=== PATIENT | male | born 1950 | race Asian ===

== ENCOUNTER 2019-01-06 12:01 | Observation (INO) | payer MEDICAID, MEDICARE ==
[~2019-01-06 12:01] MED LIST: Iopamidol 370 76% 100 ML VIAL ONE
[2019-01-06 12:57] LABS: Estimated GFR-MDRD - POC Greater than 90
[2019-01-06] MEDS ORDERED: Bacitracin Zinc 1 Packet ONE (13:00)
--- NOTE | 2019-01-06 13:00 | RAD ---
RADIOGRAPH LEFT HAND THREE VIEWS: HISTORY: A 68-year-old male with acute trauma to the left hand after a fall. FINDINGS: Diffuse osteopenia. No dislocation. No fracture identified. IMPRESSION: No fracture identified. POS: [facility]
--- NOTE | 2019-01-06 13:00 | RAD ---
RADIOGRAPH CHEST 1 VIEW: HISTORY: 68-year-old male status post acute chest trauma from fall. FINDINGS: There are no air space densities, pulmonary edema, pneumothorax, or cardiomegaly. The lateral costop hrenic angles are sharp. IMPRESSION: No acute cardiopulmonary findings. [place] POS: [facility]
--- NOTE | 2019-01-06 13:26 | RAD ---
RADIOGRAPH LEFT FOOT THREE VIEWS: History: 68-year-old male with traumatic left foot pain after fall. FINDINGS: Mildly comminuted oblique fracture of third proximal phalangeal diaphysis, with mild lateral angulati on of the diaphysis relative to the metaphysis. No dislocation. IMPRESSION: Acute, traumatic, minimally displaced spiral fracture of shaft of proximal phalanx of left third toe. POS: [facility]
[2019-01-06] MEDS ORDERED: Morphine 4 MG/ML VIAL ONE (13:33)
--- NOTE | 2019-01-06 13:59 | CT ---
CT ABDOMEN AND PELVIS WITH CONTRAST LIMITED CT LUMBOSACRAL SPINE: HISTORY: Injury. Flank pain. Fall. COMPARISON: CT abdomen from 2014. FINDINGS: Low-grade atelectasis lower lobes. 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 There is a fracture of the right posterolateral 9th rib with 1 shaft width displacement and 3 mm overriding. There is a lateral right 8th rib fracture with shaft width displacement. A 7th rib fracture lat erally is present with shaft width displacement. There are possibly some other rib fractures vaishali t are not interrogated on this exam as this is only an abdomen and pelvis exam. No left-sided rib fractures are present. No transverse process fractures are present. 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 No lumbar spine compression fracture is appreciated. No widening of the facet joints. No spinous process fracture. Bone island right ileum. SI joints are not widened. The pubic symphysis is not widened. Bone island in the right femoral head and right femoral metaphysis and right posterior ileum at the S I joint and left iliac wing. A 3 mm nodule right lower lobe axial image 14. Liver is without laceration or contusion. No perihep atic hematoma. The spleen without acute injury nor do the adrenal glands have acute injury. No acut e renal injury. Hypodensity inferior pole right kidney measures fluid attenuation suggestive of a cy st. The aortic contour is nonaneurysmal. No acute aortic injury. Soft tissue contusion of the right lateral hemithorax. The appendix is visualized and is normal. No mesenteric hematoma. Mild thickening of the sigmoid colon for a length of 10 cm may be sequelae of colitis, less likely underlying infiltrative mass. No retroperitoneal periaortic adenopathy. IMPRESSION: 1. Multiple right-sided rib fractures as described, some of which are segmental. Small extrapleural hematoma. No significant right-sided basilar pneumothorax. 2. No solid organ injury within the abdomen or pelvis. No hepatic laceration. 3. Mild diastasis recti. 4. Approximately 10 cm submucosal edema and thickening of the sigmoid colon may be sequelae of a col itis, although a followup colonoscopy is recommended. POS: [facility]
[2019-01-06 14:35] LABS: PTT 23.8 SEC (22.9-36.1); Prothrombin Time 13.4 SEC (12.0-14.7)
[2019-01-06 14:37] LABS: #Basophils 0.1 thou/uL (0.0-0.2); #Eosinphils 0.1 thou/uL (0.0-0.7); #Lymphocytes 1.4 thou/uL (1.20-3.40); #Monocytes 0.7 thou/uL (0.11-0.59); #Neutrophils 11.8 thou/uL (1.40-6.50); %Basophils 0.6 % (0.0-1.0); %Eosinophils 0.6 % (0.0-10.0); %Neutrophils 83.8 % (42.0-75.0); Anisocytosis SLIGHT = 6-15 cells (100X) (0-5/hpf); Elliptocytes SLIGHT = 2-5 cells (100X) (0-1/hpf); Hemoglobin 12.7 g/dL (14.0-18.0); Hypochromia SLIGHT = 6-15 cells (100X) (0-5/hpf); MDiff Complete? YES; Mean Corpuscular HGB CONC 30.3 g/dL (32.0-36.0); Mean Corpuscular Hemoglobin 19.8 pg (27.0-31.0); Mean Corpuscular Volume 65.4 fL (78.0-98.0); Mean Platelet Volume 14.9 fL (7.4-10.4); Microcytosis SLIGHT = 6-15 cells (100X) (0-5/hpf); Platelet Count 179 thou/uL (130-400); Platelet Morphology Comment Appears Adequate; RBC Distribution Width 15.1 % (11.5-14.5); Red Blood Cell (RBC) Count 6.42 mill/uL (4.70-6.10); Target Cells SLIGHT = 2-5 cells (100X) (0-1/hpf); White Blood Cell (WBC) Count 14.1 thou/uL (4.8-10.8)
[2019-01-06 14:42] LABS: Anion Gap 15 mmol/L (10-20); BUN (Urea Nitrogen) 13 mg/dL (8.4-25.7); Calc. Creatinine Clearance 0 mL/min (70-130); Calcium 9.2 mg/dL (7.8-10.44); Carbon Dioxide 22 mmol/L (23-31); Chloride 105 mmol/L (98-107); Estimated GFR-MDRD Greater than 90; Glucose 241 mg/dL (80-115); Potassium 4.5 mmol/L (3.5-5.1); Sodium 137 mmol/L (136-145)
--- NOTE | 2019-01-06 14:42 | RAD ---
RIGHT SHOULDER TWO VIEWS: HISTORY: Fall. COMPARISON: None. FINDINGS: No fracture. No malalignment. Mild subacromial narrowing. The visualized ribs are unremarkable. IMPRESSION: 1. No acute abnormality submitted for interrogation. 2. No acute displaced fracture or malalignment is appreciated. 4. Acromioclavicular alignment is normal. POS: [facility]
[2019-01-06] MEDS ORDERED: Gabapentin 100 MG CAP ONE (15:10)
[2019-01-06] MEDS ORDERED: traMADol HCl 50 MG TAB ONE (15:11)
[2019-01-06] MEDS ORDERED: Acetaminophen 500 MG TAB ONE (15:11)
[2019-01-06] MEDS ORDERED: Ibuprofen 600 MG TAB ONE (15:12)
[2019-01-06 17:39] VITALS: BMI 35.9
[2019-01-06] MEDS ORDERED: Ondansetron ODT 4 MG TAB PO PRN (18:14)
[2019-01-06] MEDS ORDERED: Dextrose 50% Abboject 50 ML SYRINGE SLOW IVP PRN (18:14)
[2019-01-06] MEDS ORDERED: Dextrose 5% in Water 1,000 ML IV PRN (18:14)
[2019-01-06] MEDS ORDERED: Ondansetron PF 4 MG/2 ML Vial IVP PRN (18:14)
[2019-01-06] MEDS ORDERED: Rib Fracture Protocol PO SCH (18:14)
[2019-01-06] MEDS ORDERED: Cyclobenzaprine 10 MG TAB PO PRN (18:15)
[2019-01-06] MEDS ORDERED: traMADol HCl 50 MG TAB PO SCH (18:30)
[2019-01-06] MEDS ORDERED: Ibuprofen 800 MG TAB PO SCH (18:30)
[2019-01-06] MEDS ORDERED: Acetaminophen 500 MG TAB PO SCH (18:30)
[2019-01-06] MEDS ORDERED: HYDROcodone/Acetaminophen 10/325 mg Tablet PO PRN (19:07)
[2019-01-06] MEDS ORDERED: INSULIN PUMP CARTRIDGE SC SCH (19:15)
--- NOTE | 2019-01-06 19:58 | HP ---
ATTENDING SURGEON: Jonah Fischer DO CONSULTATIONS: None. HISTORY OF PRESENT ILLNESS: The patient is a 68-year-old man, who was reportedly stepping out of the shower earlier this morning when he fell and struck his right flank against the toilet. The patient had immediate pain to his right shoulder, right flank, and left foot. The patient was brought by POA to the Emergency Department at [facility], where he underwent evaluation and examination and was noted to have multiple rib fractures, contusion of his shoulder, and a phalanx fracture of his left foot, at which time, we were asked to admit the patient for pain control, observation, and likely a Rehab consultation. ALLERGIES: NONE. CURRENT MEDICATIONS: 1. Amlodipine/atorvastatin. 2. Aspirin. 3. Duloxetine. 4. Jardiance. 5. Gabapentin. 6. Glucosamine. 7. [place]. 8. Insulin pump. 9. Irbesartan. 10. Metformin. 11. Sertraline. 12. Tamsulosin. 13. Ambien. PAST SURGICAL HISTORY: Bilateral knee replacements. SOCIAL HISTORY: The patient lives at home with family. He denies drug, tobacco, or alcohol use. REVIEW OF SYSTEMS: A 10-point review of systems is negative as otherwise stated. PHYSICAL EXAMINATION: VITAL SIGNS: Temperature 98.0, heart rate 83, blood pressure 148/71, respirations 20, and oxygen saturation is 92% on room air. GENERAL: The patient is resting comfortably in bed. He is awake, alert, and oriented x3. Leidy Coma Scale is 15. HEENT: Head, normocephalic and atraumatic. Eyes, extraocular motion intact. PERRLA bilaterally. Ears are atraumatic without discharge. Oropharynx is clear. NECK: Nontender. Trachea is midline. No JVD. CHEST: Clear to auscultation with moderate inspiratory and expiratory effort. The patient reports difficulty due to pain primarily on his right lower chest consistent with his fractures. ABDOMEN: Soft, flat, and nontender with active bowel sounds. PELVIS: Stable. EXTREMITIES: The patient is tender to palpation to right shoulder area. Nontender at the clavicle. Left foot is immobilized in a postop shoe. All extremities are neurovascularly intact. BACK: Tender to palpation and painful in the right costovertebral angle area consistent with his fractures. LABORATORY FINDINGS: White blood cell count 14.1, hemoglobin 12.7, hematocrit 42.0, and platelets 179. Sodium 137, potassium 4.5, chloride 105, CO2 of 22, BUN 13, creatinine 0.73, and glucose 241. PT 13.4, INR 1.0, and PTT 23.8. RADIOGRAPHIC REPORTS: 1. AP chest radiograph shows no acute cardiopulmonary findings. Views of the right shoulder show no acute abnormality. Views of the left hand show no fracture identified. Views of the left foot show an acute traumatic minimally displaced spiral fracture of the shaft of the proximal phalanx of the left third toe. 2. CT of the abdomen and pelvis with IV contrast shows multiple right-sided rib fractures #7 through 12. A small extra pleural hematoma. No other acute findings are noted. The patient was incidentally noted to have approximately 10 cm submucosal edema and thickening of the sigmoid colon, which may be the sequela of colitis and a followup colonoscopy is recommended. ASSESSMENT: 1. Status post ground level fall. 2. Multiple right-sided rib fractures, #7 through 12. 3. Right shoulder contusion. 4. Left third toe fracture. 5. Multiple comorbidities. PLAN: Plan will be to admit the patient to the observation unit for pain control, rib fracture protocol, pulmonary toilet, gastritis, and mechanical VTE prophylaxis. The patient will be restarted on his home medications with the exception of his Glucophage. We will have him use his insulin pump as directed. In the morning, we will have Physical and Occupational Therapy work with him and after discussion with the patient and family, they asked for a Rehab evaluation, which we will submit that consult. The evaluation, examination, laboratory, and radiographic findings were discussed with Dr. Fischer prior to this dictation. Job ID: [id number]
[2019-01-06] MEDS: Famotidine 20 MG TAB PO SCH (20:42)
[2019-01-06] MEDS: Atorvastatin Calcium 20 MG TAB PO SCH (20:42)
[2019-01-06] MEDS: DULoxetine 30 MG CAP PO SCH (20:42)
[2019-01-06] MEDS: Amlodipine 10 MG TAB PO SCH (20:43)
[2019-01-06] MEDS: Gabapentin 300 MG CAP PO SCH (20:43)
[2019-01-06] MEDS: Tamsulosin HCl 0.4 MG CAP PO SCH (20:43)
[2019-01-06] MEDS: Zolpidem Tartrate 5 MG TAB PO SCH (20:44)
[2019-01-06] MEDS ORDERED: Gabapentin 300 MG CAP PO SCH (21:00)
[2019-01-06] MEDS ORDERED: AMLODIPINE PO SCH (21:00)
[2019-01-06] MEDS ORDERED: [UNRECOGNIZED DRUG - OTHER] PO SCH (21:00)
[2019-01-06] MEDS ORDERED: ATORVASTATIN PO SCH (21:00)
[2019-01-06] MEDS ORDERED: metFORMIN 500 MG TAB PO SCH (21:00)
[2019-01-07] MEDS: Ibuprofen 800 MG TAB PO SCH ×4 (00:04→18:25)
[2019-01-07] MEDS: traMADol HCl 50 MG TAB PO SCH ×4 (00:05→18:25)
[2019-01-07] MEDS: Acetaminophen 500 MG TAB PO SCH ×4 (00:06→18:25)
[2019-01-07 07:01] LABS: Hemoglobin 12.4 g/dL (14.0-18.0); Mean Corpuscular HGB CONC 30.2 g/dL (32.0-36.0); Mean Corpuscular Hemoglobin 19.9 pg (27.0-31.0); Mean Corpuscular Volume 65.8 fL (78.0-98.0); Mean Platelet Volume 12.7 fL (7.4-10.4); Platelet Count 168 thou/uL (130-400); RBC Distribution Width 16.3 % (11.5-14.5); Red Blood Cell (RBC) Count 6.23 mill/uL (4.70-6.10); White Blood Cell (WBC) Count 12.3 thou/uL (4.8-10.8)
[2019-01-07 07:02] LABS: #Basophils 0.1 thou/uL (0.0-0.2); #Eosinphils 0.2 thou/uL (0.0-0.7); #Lymphocytes 2.6 thou/uL (1.20-3.40); #Monocytes 0.9 thou/uL (0.11-0.59); #Neutrophils 8.6 thou/uL (1.40-6.50); %Basophils 0.5 % (0.0-1.0); %Eosinophils 1.2 % (0.0-10.0); %Lymphocytes 21.2 % (21.0-51.0); %Monocytes 7.4 % (0.0-10.0); %Neutrophils 69.6 % (42.0-75.0)
[2019-01-07 07:09] LABS: Anion Gap 15 mmol/L (10-20); BUN (Urea Nitrogen) 16 mg/dL (8.4-25.7); Calc. Creatinine Clearance 114 mL/min (70-130); Calcium 9.4 mg/dL (7.8-10.44); Carbon Dioxide 24 mmol/L (23-31); Chloride 105 mmol/L (98-107); Estimated GFR-MDRD Greater than 90; Glucose 193 mg/dL (80-115); Potassium 3.7 mmol/L (3.5-5.1); Sodium 140 mmol/L (136-145)
[2019-01-07] MEDS: Famotidine 20 MG TAB PO SCH ×2 (08:25→20:57)
[2019-01-07] MEDS: Gabapentin 300 MG CAP PO SCH ×3 (08:26→20:59)
[2019-01-07] MEDS: Aspirin Chewable 81 MG TAB PO SCH (08:26)
--- NOTE | 2019-01-07 08:27 | RAD ---
SINGLE VIEW OF THE CHEST: Comparison: 01-06-19 History: Multiple rib fractures. Follow up exam. FINDINGS: Single view of the chest shows a cardiomediastinal silhouette which his upper limits of normal in siz e. Increased interstitial markings are seen. There is no evidence of consolidation, mass, pneumothora x, or pleural effusion. There appear to be multiple left rib fractures. IMPRESSION: No evidence of acute cardiopulmonary disease. POS: [facility]
[2019-01-07] MEDS ORDERED: D3 PO SCH (09:00)
[2019-01-07] MEDS ORDERED: GLUCOSAMINE PO SCH (09:00)
[2019-01-07] MEDS ORDERED: BOSWELLIA SERRA PO SCH (09:00)
[2019-01-07 09:21] LABS: Elliptocytes SLIGHT = 2-5 cells (100X) (0-1/hpf); Hypochromia SLIGHT = 6-15 cells (100X) (0-5/hpf); MDiff Complete? YES; Microcytosis MODERATE=15-30 cells (100X) (0-5/hpf); Ovalocytes MARKED = >16 cells (100X) (0-1/hpf); Platelet Morphology Comment Appears Adequate; Polychromasia MODERATE = 3-4 cells (100X) (0-2/hpf); Reflex for Review?? YES
[2019-01-07] MEDS: Heparin 5,000 UNITS/ML VIAL SC SCH ×3 (10:45→20:59)
--- NOTE | 2019-01-07 12:07 | PRG ---
DATE OF SERVICE: 01/07/2019 ADDENDUM: Mr. Davis is a 68-year-old man, who fell from a ground level position yesterday. The patient sustained multiple right-sided rib fractures as well as left third toe fracture. This morning, he reports adequate pain control. He is tolerating diet having normal bowel and urinary function. Family is at bedside. He is using incentive spirometer achieving over 1500 mL with minimum effort. Vital signs this morning include blood pressure 129/64, pulse is 86, respiratory rate is 18, temperature 98.4 degrees Fahrenheit, oxygen saturation is 96% on room air. I did review the history and physical as recorded by DEON Cruz. I agree with his findings, assessment, and plan. OBJECTIVE: HEART: This morning heart reveals regular rate and rhythm. LUNGS: Clear to auscultation bilaterally. Breathing, regular and nonlabored. NEUROLOGIC: The patient has no neurological deficits present. LABORATORY STUDIES: I did review all laboratory studies including CBC this morning with 12,300 white blood cells, hemoglobin and hematocrit 12.4 and 41.0 respectively, platelet count is 168,000. Metabolic profile; sodium 140, potassium 3.7, chloride is 105, bicarb is 24, BUN 16, creatinine 0.83, glucose 193. IMPRESSION: 1. Post admission day #1, status post ground level fall. 2. Multiple right rib fractures. 3. Left third toe fracture. PLAN: 1. Continue with current pain management. 2. Increase activity per Physical and Occupational Therapy. 3. Anticipate discharge to inpatient rehabilitation once bed becomes available. 4. Above findings and plan discussed with the patient and family at bedside. They all agree with the above stated plan. Job ID: [id number]
[2019-01-07] MEDS: DULoxetine 30 MG CAP PO SCH (20:57)
[2019-01-07] MEDS: Amlodipine 10 MG TAB PO SCH (20:57)
[2019-01-07] MEDS: Tamsulosin HCl 0.4 MG CAP PO SCH (20:58)
[2019-01-07] MEDS: Atorvastatin Calcium 20 MG TAB PO SCH (20:59)
[2019-01-07] MEDS: Zolpidem Tartrate 5 MG TAB PO SCH (20:59)
[2019-01-08] MEDS: traMADol HCl 50 MG TAB PO SCH ×4 (00:15→18:12)
[2019-01-08] MEDS: Acetaminophen 500 MG TAB PO SCH ×4 (00:15→18:13)
[2019-01-08] MEDS: Ibuprofen 800 MG TAB PO SCH ×4 (00:17→18:13)
[2019-01-08] MEDS: Heparin 5,000 UNITS/ML VIAL SC SCH ×2 (09:16→15:39)
[2019-01-08] MEDS: Gabapentin 300 MG CAP PO SCH ×2 (09:18→15:39)
[2019-01-08] MEDS: Aspirin Chewable 81 MG TAB PO SCH (09:18)
[2019-01-08] MEDS: Famotidine 20 MG TAB PO SCH (09:18)
--- NOTE | 2019-01-08 14:37 | PRG ---
DATE OF SERVICE: 01/08/2019 SUBJECTIVE: The patient is hospital day 3, status post ground level fall, in which he sustained multiple right-sided rib fractures. The patient is currently awaiting a bed availability for inpatient rehab. Otherwise is doing well. He is tolerating his diet. His pain is controlled. He is working with Physical and Occupational Therapy. OBJECTIVE: VITAL SIGNS: Temperature is 97.3, heart rate 79, blood pressure 118/56, respirations 16, and oxygen saturation is 97% on room air. GENERAL: The patient is resting comfortably, sitting beside the bed. He is awake, alert, and oriented x3. Leidy Coma Scale is 15. HEENT: Unremarkable. LUNGS: Clear to auscultation with good inspiratory and expiratory effort. The patient is able to draw 1500 to 1750 on his incentive spirometry. HEART: Regular rate and rhythm. ABDOMEN: Soft, flat, and nontender with active bowel sounds. LABORATORY DATA: There are no labs or radiographs reviewed this morning. ASSESSMENT: 1. Status post ground level fall. 2. Multiple right-sided rib fractures, 7 through 12. 3. Right shoulder contusion. 4. Left third toe fracture. PLAN: Plan will be to continue supportive care, physical and occupational therapy and await bed availability. Evaluation, examination, laboratory, and radiographic findings were discussed with Dr. Fischer this morning. Rehab has notified us that he will likely have a bed tomorrow. Job ID: [id number]
[2019-01-08 16:35] VITALS: BP 148/68; TEMP 98
== END 2019-01-08 20:45 | disposition home or self-care (01) ==
LOC: SCSER 12:01 → 2SW 14:52
PROVIDERS: ADMIT Surgery; ATTEND Surgery
DX: S22.41XA Multiple fractures of ribs, right side, initial encounter for closed fracture (principal); S92.912A Unspecified fracture of left toe(s), initial encounter for closed fracture; S27.69XA Other injury of pleura, initial encounter; S40.011A Contusion of right shoulder, initial encounter; S39.011A Strain of muscle, fascia and tendon of abdomen, initial encounter; Z96.653 Presence of artificial knee joint, bilateral; Z79.4 Long term (current) use of insulin; Z79.82 Long term (current) use of aspirin; Z79.899 Other long term (current) drug therapy; W22.8XXA Striking against or struck by other objects, initial encounter
CPT/HCPCS: 71045 ×2; 73030; 73130; 73630; 74177; 80048 ×2; 82565; 82962 ×3; 85025 ×2; 85610; 85730; 94640 ×3; 96374; 97116; 97139 ×5; 99285; G0378; 36415; 36416; 85060; J1644; J2270; J7620; Q9967

== ENCOUNTER 2019-01-20 15:28 | Outpatient (CLI) | payer MEDICARE, MEDICAID ==
--- NOTE | 2019-01-20 16:27 | RAD ---
PA AND LATERAL OF THE CHEST: INDICATION: History of closed fracture of multiple ribs. COMPARISON: Prior chest radiograph dated 01/07/2019. FINDINGS: There has been interval development of a small right pleural effusion. There is right basilar airspa ce opacity. The left lung is clear. There is mild cardiomegaly which is stable. Chronic lung an es are similar appearing. IMPRESSION: 1. Interval development of a small right pleural effusion and right basilar airspace opacity possibl y reflective of atelectasis or pneumonia. Recommend correlation. No pneumothorax is demonstrated. 2. Stable cardiomegaly. POS: [facility]
== END 2019-01-20 15:29 | disposition home or self-care (01) ==
LOC: RAD 15:28
PROVIDERS: ATTEND Physician Assistant
DX: S22.41XD Multiple fractures of ribs, right side, subsequent encounter for fracture with routine healing (principal); J90 Pleural effusion, not elsewhere classified; I51.7 Cardiomegaly; R91.8 Other nonspecific abnormal finding of lung field
CPT/HCPCS: 71046

== ENCOUNTER 2019-02-03 13:12 | Outpatient (CLI) | payer MEDICARE ==
--- NOTE | 2019-02-03 14:34 | RAD ---
PA AND LATERAL VIEWS CHEST: HISTORY: Closed fractures multiple ribs right-sided. FINDINGS: Comparison is made with the exam of 01/20/2019. The heart size is stable. No focal areas of consolid ation, pneumothoraces, or pleural effusions are seen. The aorta is tortuous. Chronic changes are ag ain seen. There are degenerative changes in the spine. IMPRESSION: No acute process. POS: [facility]
== END 2019-02-03 13:13 | disposition home or self-care (01) ==
LOC: RAD 13:12
PROVIDERS: ATTEND Physician Assistant
DX: S22.41XD Multiple fractures of ribs, right side, subsequent encounter for fracture with routine healing (principal)
CPT/HCPCS: 71046

== ENCOUNTER 2019-02-19 19:01 | Observation (INO) | payer MEDICARE, MEDICAID ==
[2019-02-19] MEDS ORDERED: Ondansetron PF 4 MG/2 ML Vial ONE (19:24)
[2019-02-19 20:09] LABS: Hemoglobin 13.9 g/dL (14.0-18.0); Mean Corpuscular HGB CONC 29.9 g/dL (32.0-36.0); Mean Corpuscular Hemoglobin 19.9 pg (27.0-31.0); Mean Corpuscular Volume 66.4 fL (78.0-98.0); Red Blood Cell (RBC) Count 7.03 mill/uL (4.70-6.10); White Blood Cell (WBC) Count 22.3 thou/uL (4.8-10.8)
[2019-02-19 20:10] LABS: Platelet Count 206 thou/uL (130-400); RBC Distribution Width 15.7 % (11.5-14.5)
[2019-02-19 20:11] LABS: Manual Diff?? YES; Mean Platelet Volume 12.3 fL (7.4-10.4)
--- NOTE | 2019-02-19 20:11 | CT ---
EXAM: Abdomen and pelvic CT scan without contrast: HISTORY: Abdominal pain COMPARISON: 01/06/2019 FINDINGS: Healed right rib fractures. Stable 0.3 cm diameter subpleural nodule in the right lower lobe. Minimal posterior right pleural thickening. Small hiatal hernia. Very mild diastases recti. Liver: Unremarkable. Gallbladder:Unremarkable. Pancreas:Unremarkable Spleen:Unremarkable. Adrenal glands:Unremarkable. Kidneys:No renal calculus or acute obstruction.Stable right renal cyst. No evidence for bowel obstruction. No CT evidence for acute appendicitis. The urinary bladder is unremarkable. Prominent bilateral fat-containing inguinal hernias. Bilateral pars defects at L5-S1 with mild anterolisthesis. Somewhat prominent nodular prostate gland. No abscess, adenopathy, or abnormal fluid collection within the abdomen or pelvis. IMPRESSION: No significant acute process within the abdomen or pelvis. Numerous other nonemergent findings as abo ve.
[2019-02-19 20:17] LABS: Band 4 % (5-11); MDiff Complete? YES
[2019-02-19 20:18] LABS: Anisocytosis SLIGHT = 6-15 cells (100X) (0-5/hpf); Eosinophils 1 % (0-10); Lymphocytes 5 % (21-51); Microcytosis SLIGHT = 6-15 cells (100X) (0-5/hpf); Monocytes 5 % (0-10); Neutrophil 85 % (42-75)
[2019-02-19 20:19] LABS: ALT (SGPT) 15 U/L (8-55); AST (SGOT) 17 U/L (5-34); Albumin 4.3 g/dL (3.4-4.8); Alkaline Phosphatase 91 U/L (40-150); Anion Gap 19 mmol/L (10-20); BUN (Urea Nitrogen) 16 mg/dL (8.4-25.7); Bilirubin, Total 0.9 mg/dL (0.2-1.2); Calc. Creatinine Clearance 0 mL/min (70-130); Calcium 9.4 mg/dL (7.8-10.44); Carbon Dioxide 22 mmol/L (23-31); Chloride 102 mmol/L (98-107); Elliptocytes SLIGHT = 2-5 cells (100X) (0-1/hpf); Estimated GFR-MDRD 88; Globulin 2.8 g/dL (2.4-3.5); Glucose 187 mg/dL (80-115); Lipase 21 U/L (8-78); Ovalocytes SLIGHT = 2-5 cells (100X) (0-1/hpf); Potassium 3.8 mmol/L (3.5-5.1); Protein, Total 7.1 g/dL (5.8-8.1); Sodium 139 mmol/L (136-145)
[2019-02-19 20:20] LABS: Giant Platelets SLIGHT; Platelet Morphology Comment Appears Adequate
[2019-02-19] MEDS ORDERED: Cefepime 2 GM VIAL ONE (20:36)
[2019-02-19] MEDS ORDERED: Sodium Chloride 0.9% 100 ML ONE (20:38)
[2019-02-19 20:39] LABS: Bilirubin Negative (Negative); Blood, Urine Trace (Negative); Glucose, Urine (Dipstick) >=1000 mg/dL (Negative); Leukocyte Negative (Negative); Nitrite Negative (Negative); Protein, Urine (Dipstick) Trace mg/dL (Neg-Trace); Urobilinogen 0.2 mg/dL (0.2-1.0); pH, Urine 5.5 (5.0-9.0)
[2019-02-19 20:40] LABS: Clarity Hazy (Clear)
[2019-02-19 20:43] LABS: RBC/HPF 0-3 HPF (0-3)
[2019-02-19 20:44] LABS: Bacteria/HPF Rare-Few HPF (None Seen); Squamous Epithelial None Seen HPF (0-3); WBC/HPF None Seen HPF (0-3)
[2019-02-19] MEDS ORDERED: Acetaminophen 325 MG TAB ONE (20:59)
[2019-02-19] MEDS ORDERED: metroNIDAZOLE 500 MG/100 ML BAG ONE (21:19)
[2019-02-19] MEDS ORDERED: Acetaminophen 325 MG TAB PO PRN (22:52)
[2019-02-19] MEDS ORDERED: Ondansetron ODT 4 MG TAB SL PRN (22:52)
[2019-02-19] MEDS ORDERED: Ondansetron PF 4 MG/2 ML Vial IVP PRN (22:52)
[2019-02-19 23:53] LABS: Lactic Acid 2.1 mmol/L (0.5-2.2)
[2019-02-20] MEDS: metroNIDAZOLE 500 MG in Premix Bag 1 BAG IVPB SCH ×2 (04:34→08:23)
[2019-02-20] MEDS ORDERED: Cefepime 2 GM in Sodium Chloride 0.9% 100 ML IVPB SCH (05:00)
[2019-02-20 08:16] LABS: Hemoglobin 12.2 g/dL (14.0-18.0); Mean Corpuscular HGB CONC 29.7 g/dL (32.0-36.0); Mean Corpuscular Hemoglobin 19.6 pg (27.0-31.0); Mean Corpuscular Volume 66.2 fL (78.0-98.0); Platelet Count 200 thou/uL (130-400); RBC Distribution Width 16.1 % (11.5-14.5); Red Blood Cell (RBC) Count 6.23 mill/uL (4.70-6.10)
[2019-02-20 08:32] LABS: Lactic Acid 1.2 mmol/L (0.5-2.2)
[2019-02-20 08:33] LABS: Anion Gap 13 mmol/L (10-20); BUN (Urea Nitrogen) 16 mg/dL (8.4-25.7); Calc. Creatinine Clearance 126 mL/min (70-130); Calcium 8.5 mg/dL (7.8-10.44); Carbon Dioxide 24 mmol/L (23-31); Chloride 105 mmol/L (98-107); Estimated GFR-MDRD Greater than 90; Glucose 137 mg/dL (80-115); Magnesium 1.6 mg/dL (1.6-2.6); Sodium 138 mmol/L (136-145)
[2019-02-20] MEDS ORDERED: Aspirin Chewable 81 MG TAB PO SCH (09:00)
[2019-02-20] MEDS ORDERED: Cyclobenzaprine 10 MG TAB PO PRN (09:00)
[2019-02-20 09:33] LABS: #Eosinphils 0.1 thou/uL (0.0-0.7); #Lymphocytes 2.2 thou/uL (1.20-3.40); #Monocytes 1.2 thou/uL (0.11-0.59); #Neutrophils 11.5 thou/uL (1.40-6.50); %Basophils 0.2 % (0.0-1.0); %Eosinophils 0.7 % (0.0-10.0); %Lymphocytes 14.8 % (21.0-51.0); %Monocytes 7.8 % (0.0-10.0); %Neutrophils 76.5 % (42.0-75.0); Anisocytosis SLIGHT = 6-15 cells (100X) (0-5/hpf); Burr Cells SLIGHT = 2-5 cells (100X) (0-1/hpf); Elliptocytes MODERATE= 6-15 cells (100X) (0-1/hpf); MDiff Complete? YES; Mean Platelet Volume 11.7 fL (7.4-10.4); Microcytosis SLIGHT = 6-15 cells (100X) (0-5/hpf); Ovalocytes SLIGHT = 2-5 cells (100X) (0-1/hpf); Platelet Morphology Comment Appears Adequate; Poikilocytosis SLIGHT = 6-15 cells (100X) (0-5/hpf); Polychromasia SLIGHT = 2-3 cells (100X) (0-2/hpf)
[2019-02-20] MEDS ORDERED: HYDROcodone/Acetaminophen 10/325 mg Tablet PO PRN (09:33)
[2019-02-20] MEDS ORDERED: Dextrose 5% in Water 1,000 ML IV PRN (09:34)
[2019-02-20] MEDS ORDERED: Dextrose 50% Abboject 50 ML SYRINGE SLOW IVP PRN (09:34)
[2019-02-20] MEDS ORDERED: DULoxetine 30 MG CAP PO SCH (09:45)
[2019-02-20 12:08] VITALS: BMI 34.8
[2019-02-20 12:37] VITALS: BP 108/55; TEMP 98.6
--- NOTE | 2019-02-20 16:56 | SS ---
DATE OF ADMISSION: 02/19/2019 DATE OF DISCHARGE: 02/20/2019 CONSULTING PHYSICIAN: None. DISCHARGE DIAGNOSES: 1. Viral gastroenteritis. 2. Hypertension. 3. Type 2 diabetes mellitus. 4. Hyperlipidemia. HISTORY OF PRESENT ILLNESS AND HOSPITAL COURSE: Mr. Davis is a pleasant 68-year-old man who states he was in his usual state of health until yesterday when he suddenly developed nausea, vomiting, and persistent diarrhea. The patient states he has not had any recent travel and has been eating at home for the last 2 nights. He states it came on suddenly and no one at home developed any similar symptoms. He denies having any fevers, but reports feeling generally weak and unwell due to the persistent vomiting and diarrhea. He then developed abdominal cramping. He presented to the ER where he underwent laboratory studies that were notable for an elevated white cell count of 22. The patient had a normal kidney function and electrolytes. He also had a normal lactic acid. Due to abdominal discomfort, he underwent a CT of the abdomen and pelvis, which demonstrated no significant acute process within the abdomen or pelvis. There were other numerous nonemergent findings present. Stool studies were sent to check for Campylobacter, Shiga, and Clostridium difficile. Stool cultures were negative. The Clostridium difficile was negative as well. The patient had been apparently treated in the emergency department with cefepime and metronidazole. Since admission, his symptoms have fully settled. He was given a clear liquid diet, but only tried drinking tea. For lunch, his diet was advanced and he tolerated his lunch without any nausea, vomiting, or diarrhea. His abdominal pain has fully settled. Repeat laboratory studies noted improvement in his white cell count to 15. He remained afebrile throughout his stay. The leukocytosis was felt to be likely reactive. Given the fact that the patient continued to do well even after advancing his diet. It was felt he was medically stable for discharge home. REVIEW OF SYSTEMS: At this time, the patient denies having any chest pain, palpitations, or shortness of breath. Again, has not had any fevers, chills, or sweats. No headaches or dizziness. He has been mobilizing without difficulty. Denies any further episodes of diarrhea. No blood in his stools. All other review of systems are negative. PHYSICAL EXAMINATION: GENERAL: The patient appears well developed, well nourished, who is in no acute distress. VITAL SIGNS: Temperature 98.5, pulse 70, respirations 16, O2 saturation 97% on room air, and blood pressure 131/59. HEENT: Normocephalic and atraumatic. Pupils are equal, round, and reactive to light. Sclerae are without icterus. Oropharynx is clear. NECK: Supple without lymphadenopathy. LUNGS: Clear to auscultation bilaterally. CARDIAC: Regular rate and rhythm. ABDOMEN: Soft, nontender, and nondistended. Normoactive bowel sounds present. No guarding or rigidity. No renal angle tenderness. EXTREMITIES: Without edema or swelling. NEUROLOGIC: Oriented x3. Cranial nerves 2 through 12 intact. SKIN: Without rash or jaundice. ALLERGIES: NO KNOWN DRUG ALLERGIES. CURRENT MEDICATIONS: 1. Duloxetine. 2. Metformin. 3. Amlodipine/atorvastatin. 4. Zolpidem tartrate. 5. Tamsulosin. 6. Sertraline. 7. Irbesartan. 8. Insulin pump. 9. Hydrocodone. 10. Gabapentin. 11. Empagliflozin. 12. Cyclobenzaprine. 13. Aspirin. 14. Acetaminophen. 15. Multivitamin. PAST MEDICAL HISTORY: 1. Hypertension. 2. Hyperlipidemia. 3. Type 2 diabetes mellitus, on insulin pump. 4. Anxiety. 5. Depression. PAST SURGICAL HISTORY: 1. Bilateral knee replacements. 2. Bilateral cataract surgeries. SOCIAL HISTORY: The patient denies any alcohol use. He does not smoke and denies any illicit drug use. LABORATORY DATA: White blood count 15, hemoglobin 12.2, hematocrit 41.2, and platelets 200. Sodium 138, potassium 4.0, chloride 105, carbon dioxide 24, anion gap 13, BUN 16, creatinine 0.73, GFR greater than 90, glucose 137, lactic acid 1.2, calcium 8.5, and magnesium 1.6. LFTs unremarkable. Lipase 21. Urinalysis notable for greater than 1000 glucose, trace ketones and trace blood, otherwise negative. IMAGING DATA: CT abdomen and pelvis, 02/19/2019; stable 0.3 cm diameter subpleural nodule in the right lower lobe. Minimal posterior right pleural thickening. Small hiatal hernia. Very mild diastasis recti. Stable right renal cyst. Prominent bilateral fat containing inguinal hernias. Bilateral pars defects at L5-S1 with mild anterolisthesis. Somewhat prominent nodular prostate gland. No acute process. DISCHARGE MEDICATIONS: None. The patient advised to resume home medications. CONDITION: Stable at discharge. ACTIVITY: As tolerated. DIET: Heart healthy/diabetic diet as tolerated. FOLLOWUP: The patient advised to follow up with his primary care physician within 1 week. DISPOSITION: The patient medically cleared for discharge home today, 02/20/2019. The patient was seen and discussed with Dr. Natarajan who agrees upon care as described above. Job ID: [id number]
[2019-02-20] MEDS ORDERED: Zolpidem Tartrate 5 MG TAB PO SCH (21:00)
[2019-02-20] MEDS ORDERED: ATORVASTATIN PO SCH (21:00)
[2019-02-20] MEDS ORDERED: Amlodipine 10 MG TAB PO SCH (21:00)
[2019-02-20] MEDS ORDERED: [UNRECOGNIZED DRUG - OTHER] PO SCH (21:00)
[2019-02-20] MEDS ORDERED: AMLODIPINE PO SCH (21:00)
[2019-02-20] MEDS ORDERED: Atorvastatin Calcium 20 MG TAB PO SCH (21:00)
[2019-02-20] MEDS ORDERED: Tamsulosin HCl 0.4 MG CAP PO SCH (21:00)
== END 2019-02-20 15:18 | disposition home or self-care (01) ==
LOC: SCSER 19:01 → 2SW 22:18
PROVIDERS: ADMIT Internal Medicine; ATTEND Internal Medicine
DX: A08.4 Viral intestinal infection, unspecified (principal); I10 Essential (primary) hypertension; E11.9 Type 2 diabetes mellitus without complications; E78.5 Hyperlipidemia, unspecified; F41.9 Anxiety disorder, unspecified; F32.9 Major depressive disorder, single episode, unspecified; Z79.82 Long term (current) use of aspirin; Z79.84 Long term (current) use of oral hypoglycemic drugs; Z79.899 Other long term (current) drug therapy; Z96.41 Presence of insulin pump (external) (internal)
CPT/HCPCS: 74176; 80048; 80053; 82274; 82962 ×2; 83605 ×2; 83630; 83690; 83735; 84484; 85025 ×2; 87045; 87046; 87324; 87449 ×2; 87899 ×2; 93005; 96361; 96365; 96366; 96367; 96375; 96376; 99285; G0378 ×2; 36415; 36416; 81003; 81015; J0692; J2270; J2405; J3490

== ENCOUNTER 2019-06-12 08:13 | Outpatient (CLI) | payer MEDICARE, MEDICAID ==
[2019-06-12 09:19] LABS: Estimated GFR-MDRD - POC Greater than 90
--- NOTE | 2019-06-12 10:37 | MRI ---
MRI BRAIN WITH AND WITHOUT IV CONTRAST: Date: 06/12/19 HISTORY: Ataxia, balance problems. FINDINGS: There is ventricular sulcal prominence due to cortical atrophy. Multiple foci of T2 prolongation seen in the periventricular white matter, consistent with chronic small vessel ischemic disease. No restr icted diffusion is seen. No evidence of infarct, hemorrhage, mass, midline shift, or abnormal extra-a xial fluid collections are noted. No abnormal postcontrast enhancement is seen. There is minimal muco ronda disease in the paranasal sinuses. IMPRESSION: 1. Cortical atrophy. 2. Chronic small vessel ischemic disease. 3. No evidence of acute intracranial process or mass. POS: [facility]
== END 2019-06-12 08:14 | disposition home or self-care (01) ==
LOC: SCSMRI 08:13
PROVIDERS: ATTEND Psychiatry & Neurology Neurology
DX: R27.0 Ataxia, unspecified (principal); G31.9 Degenerative disease of nervous system, unspecified; I67.82 Cerebral ischemia
CPT/HCPCS: 70553; 82565

== ENCOUNTER 2021-01-16 11:11 | Outpatient (CLI) | payer MEDICARE, MEDICAID | END 2021-01-16 11:12 | disposition home or self-care (01) | LOC: BICRAD 11:11 | PROVIDERS: ATTEND Family Medicine | DX: R05 Cough (principal) | CPT/HCPCS: 71046 ==

== ENCOUNTER → 2023-10-24 | Outpatient (CLI) | payer OTHER, MEDICAID | LOC: SLEEPLAB 17:00 | PROVIDERS: ATTEND Nurse Practitioner Family | DX: G47.33 Obstructive sleep apnea (adult) (pediatric) (principal); E11.9 Type 2 diabetes mellitus without complications; I10 Essential (primary) hypertension; F32.A Depression, unspecified; R53.82 Chronic fatigue, unspecified; R09.89 Other specified symptoms and signs involving the circulatory and respiratory systems; R06.83 Snoring; E66.9 Obesity, unspecified; Z68.35 Body mass index [BMI] 35.0-35.9, adult | CPT/HCPCS: 95811 ==

== ENCOUNTER 2024-04-09 13:56 | Outpatient (CLI) | payer OTHER, MEDICAID | END 2024-04-09 13:57 | disposition home or self-care (01) | LOC: MRI 13:56 | PROVIDERS: ATTEND Orthopaedic Surgery | DX: M79.604 Pain in right leg (principal); M43.17 Spondylolisthesis, lumbosacral region; M48.07 Spinal stenosis, lumbosacral region; M48.061 Spinal stenosis, lumbar region without neurogenic claudication; M51.35 Other intervertebral disc degeneration, thoracolumbar region; M47.816 Spondylosis without myelopathy or radiculopathy, lumbar region; M51.36 Other intervertebral disc degeneration, lumbar region; M47.817 Spondylosis without myelopathy or radiculopathy, lumbosacral region; M25.78 Osteophyte, vertebrae | CPT/HCPCS: 72148 ==

== ENCOUNTER 2024-07-29 06:37 | Emergency (ER) | payer OTHER ==
[2024-07-29] MEDS ORDERED: Ketorolac Tromethamine 30 MG (1 mL) VIAL ONE (07:19)
== END 2024-07-29 09:40 | disposition home or self-care (01) ==
LOC: ERS 06:37
DX: M79.604 Pain in right leg (principal); E11.9 Type 2 diabetes mellitus without complications; I10 Essential (primary) hypertension
CPT/HCPCS: 73502; J1885; 96372; 99283

== ENCOUNTER 2025-06-24 02:56 | Inpatient (IN) | payer OTHER ==
[2025-06-24 04:09] LABS: #Basophils 0.05 10x3/uL (0.0-0.2); #Eosinophils 0.22 10x3/uL (0.0-0.7); #Monocytes 0.84 10x3/uL (0.11-0.59); #Neutrophils 7.21 10x3/uL (1.40-6.50); %Basophils 0.5 % (0.0-1.0); %Eosinophils 2.1 % (0.0-10.0); %Lymphocytes 18.6 % (21.0-51.0); %Monocytes 8.2 % (0.0-10.0); %Neutrophils 70.3 % (42.0-75.0); Hematocrit 42.6 % (42.0-52.0); Hemoglobin 12.8 g/dL (14.0-18.0); Mean Corpuscular Hemoglobin 20.3 pg (27.0-31.0); Mean Corpuscular Volume 67.7 fL (78.0-98.0); Platelet Count 199 10x3/uL (130-400); Red Blood Cell (RBC) Count 6.29 mill/uL (4.70-6.10); White Blood Cell (WBC) Count 10.26 10x3/uL (4.8-10.8)
[2025-06-24 04:13] LABS: ALT (SGPT) 11 U/L (Less than 45); AST (SGOT) 23 U/L (11-34); Albumin 3.5 g/dL (3.1-4.5); Alkaline Phosphatase 75 U/L (40-110); Anion Gap 12 mmol/L (10-20); BUN (Urea Nitrogen) 15 mg/dL (8.4-25.7); Bilirubin, Total 1.1 mg/dL (0.3-1.2); Calc. Creatinine Clearance 0 mL/min (70-130); Calcium 8.7 mg/dL (7.8-10.44); Carbon Dioxide 25 mmol/L (23-31); Chloride 106 mmol/L (98-107); Globulin 2.9 g/dL (2.4-3.5); Glucose 115 mg/dL (83-110); Potassium 3.5 mmol/L (3.5-5.1); Sodium 139 mmol/L (136-145)
[2025-06-24 04:48] LABS: Anisocytosis SLIGHT = 6-15 cells HPF (0-5); Microcytosis SLIGHT = 6-15 cells HPF (0-5); Platelet Adequacy Comment Platelets Normal; Poikilocytosis SLIGHT = 6-15 cells HPF (0-5); Schistocytes SLIGHT = 2-5 cells HPF (0-1)
[2025-06-24] MEDS ORDERED: Acetaminophen 325 MG TAB PO PRN (08:29)
[2025-06-24] MEDS ORDERED: Calcium Carbonate 500 MG ChewTAB PO PRN (08:29)
[2025-06-24] MEDS ORDERED: Ondansetron PF 4 MG/2 ML Vial IVP PRN (08:29)
[2025-06-24] MEDS ORDERED: Electrolyte Replacement Protocol 1 EACH FS SCH (08:30)
[2025-06-24] MEDS ORDERED: Dextrose 50% Abboject 50 ML SYRINGE SLOW IVP PRN (08:47)
[2025-06-24] MEDS ORDERED: Glucagon 1 MG/ML KIT IM PRN (08:47)
[2025-06-24] MEDS ORDERED: Famotidine 20 MG TAB PO SCH (09:00)
[2025-06-24] MEDS ORDERED: Iopamidol 370 76% 100 ML VIAL ONE (09:08)
[2025-06-24 09:39] LABS: Magnesium 2.0 mg/dL (1.6-2.6)
[2025-06-24] MEDS ORDERED: Communication Order-Pharmacy FS SCH (10:15)
[2025-06-24] MEDS: Gabapentin 300 MG CAP PO SCH (11:35)
[2025-06-24] MEDS: Magnesium 2 GM/50 ML(in water) 2 GM in Premix 1 BAG IVPB SCH (11:36)
[2025-06-24] MEDS: Losartan 25 MG TAB PO SCH (11:36)
[2025-06-24] MEDS: Pantoprazole 40 MG DR.TAB PO SCH (11:36)
[2025-06-24 17:00] LABS: Potassium 4.5 mmol/L (3.5-5.1)
[2025-06-24] MEDS: Sertraline 100 MG TAB PO SCH (20:22)
[2025-06-24] MEDS: Aspirin 81 mg Enteric Coated Tablet PO SCH (20:22)
[2025-06-25 05:05] LABS: #Basophils 0.05 10x3/uL (0.0-0.2); #Eosinophils 0.24 10x3/uL (0.0-0.7); #Monocytes 0.87 10x3/uL (0.11-0.59); #Neutrophils 4.18 10x3/uL (1.40-6.50); %Basophils 0.6 % (0.0-1.0); %Eosinophils 3.1 % (0.0-10.0); %Lymphocytes 30.6 % (21.0-51.0); %Monocytes 11.3 % (0.0-10.0); %Neutrophils 54.1 % (42.0-75.0); Hematocrit 41.4 % (42.0-52.0); Hemoglobin 12.3 g/dL (14.0-18.0); Mean Corpuscular Hemoglobin 20.1 pg (27.0-31.0); Mean Corpuscular Volume 67.8 fL (78.0-98.0); Platelet Count 167 10x3/uL (130-400); Red Blood Cell (RBC) Count 6.11 mill/uL (4.70-6.10); White Blood Cell (WBC) Count 7.72 10x3/uL (4.8-10.8)
[2025-06-25 05:36] LABS: ALT (SGPT) 14 U/L (Less than 45); AST (SGOT) 21 U/L (11-34); Albumin 3.2 g/dL (3.1-4.5); Alkaline Phosphatase 64 U/L (40-110); Anion Gap 10 mmol/L (10-20); BUN (Urea Nitrogen) 17 mg/dL (8.4-25.7); Bilirubin, Total 1.1 mg/dL (0.3-1.2); Calc. Creatinine Clearance 105 mL/min (70-130); Calcium 8.4 mg/dL (7.8-10.44); Carbon Dioxide 25 mmol/L (23-31); Chloride 109 mmol/L (98-107); Globulin 2.6 g/dL (2.4-3.5); Glucose 98 mg/dL (83-110); Magnesium 2.2 mg/dL (1.6-2.6); Potassium 3.9 mmol/L (3.5-5.1); Sodium 140 mmol/L (136-145)
[2025-06-25] MEDS ORDERED: Adenosine 6 mg (2 mL) VIAL ONE (06:33)
[2025-06-25] MEDS ORDERED: Lidocaine 1% (PF) 30 ML VIAL ONE (06:33)
[2025-06-25] MEDS ORDERED: Heparin 10,000 UNITS/ 10 ML VIAL ONE (06:33)
[2025-06-25] MEDS ORDERED: Nitroglycerin 50 MG/250 ML BOT 250 ML ONE (06:34)
[2025-06-25] MEDS ORDERED: Iopamidol 370 76% 100 ML VIAL ONE (09:48)
[2025-06-25] MEDS ORDERED: Communication Order-Pharmacy FS SCH (15:24)
[2025-06-25] MEDS: Nitroglycerin 0.4 MG TAB (25 Tab Bottle) SL PRN (18:40)
[2025-06-26] MEDS: Senokot S 8.6-50 MG TAB PO SCH (08:58)
[2025-06-26] MEDS: Insulin Glargine 30 UNITS/0.3 ML VIAL SC SCH (08:58)
[2025-06-27 04:49] LABS: INR-International Normal Ratio 1.1; Prothrombin Time 14.7 sec (12.0-14.7)
[2025-06-27 04:58] LABS: Anion Gap 12 mmol/L (10-20); BUN (Urea Nitrogen) 20 mg/dL (8.4-25.7); Calc. Creatinine Clearance 93 mL/min (70-130); Calcium 8.8 mg/dL (7.8-10.44); Carbon Dioxide 26 mmol/L (23-31); Cardiac Risk 2.4 (Less than 4.5); Chloride 106 mmol/L (98-107); Cholesterol 105 mg/dl (< 200 Desired); Glucose 179 mg/dL (83-110); HDL Cholesterol 43 mg/dL (>60 Neg Risk); LDL Cholesterol, Calculated 42 mg/dL; Potassium 4.0 mmol/L (3.5-5.1); Sodium 140 mmol/L (136-145); Triglycerides 100 mg/dL (Less than 150)
[2025-06-27 05:18] LABS: Hematocrit 43.0 % (42.0-52.0); Hemoglobin 12.8 g/dL (14.0-18.0); Mean Corpuscular Hemoglobin 20.2 pg (27.0-31.0); Mean Corpuscular Volume 67.8 fL (78.0-98.0); Platelet Count 173 10x3/uL (130-400); Red Blood Cell (RBC) Count 6.34 mill/uL (4.70-6.10); White Blood Cell (WBC) Count 7.44 10x3/uL (4.8-10.8)
[2025-06-27 06:41] LABS: Anisocytosis MODERATE=16-30 cells HPF (0-5); Macrocytosis SLIGHT = 6-15 cells HPF (0-5); Nucleated RBC (Manual Ct) 1 % (0); Ovalocytes SLIGHT = 2-5 cells HPF (0-1); Platelet Adequacy Comment Platelets Normal; Smudge Cells 7.9 %
[2025-06-28 06:10] LABS: #Basophils 0.07 10x3/uL (0.0-0.2); #Eosinophils 0.34 10x3/uL (0.0-0.7); #Monocytes 0.75 10x3/uL (0.11-0.59); #Neutrophils 4.95 10x3/uL (1.40-6.50); %Basophils 0.8 % (0.0-1.0); %Eosinophils 4.1 % (0.0-10.0); %Lymphocytes 26.9 % (21.0-51.0); %Monocytes 8.9 % (0.0-10.0); %Neutrophils 59.1 % (42.0-75.0); Hematocrit 46.1 % (42.0-52.0); Hemoglobin 13.5 g/dL (14.0-18.0); Mean Corpuscular Hemoglobin 19.9 pg (27.0-31.0); Mean Corpuscular Volume 68.1 fL (78.0-98.0); Platelet Count 209 10x3/uL (130-400); Red Blood Cell (RBC) Count 6.77 mill/uL (4.70-6.10); White Blood Cell (WBC) Count 8.39 10x3/uL (4.8-10.8)
[2025-06-28 06:23] LABS: Anion Gap 15 mmol/L (10-20); BUN (Urea Nitrogen) 21 mg/dL (8.4-25.7); Calc. Creatinine Clearance 105 mL/min (70-130); Calcium 8.9 mg/dL (7.8-10.44); Carbon Dioxide 23 mmol/L (23-31); Chloride 106 mmol/L (98-107); Glucose 179 mg/dL (83-110); Potassium 3.9 mmol/L (3.5-5.1); Sodium 140 mmol/L (136-145)
[2025-06-28] MEDS ORDERED: PHENYLEPHRINE-NS 100 MCG/ML 10 ML SYRINGE ONE ×4 (06:37→13:26)
[2025-06-28] MEDS ORDERED: Heparin 10,000 UNITS/1 ML VIAL 30,000 UNITS in Sodium Chloride 0.9% 1,000 ML FS SCH (06:45)
[2025-06-28] MEDS ORDERED: fentaNYL PF 100 MCG/2 ML SYRINGE ONE ×2 (06:55→12:19)
[2025-06-28] MEDS ORDERED: SUCCINYLCHOLINE/SOD CL,ISO/PF 200 MG/10 ML SYRINGE FS ONE (06:55)
[2025-06-28] MEDS ORDERED: PROPOFOL 20 ML ONE (06:56)
[2025-06-28] MEDS ORDERED: Lidocaine 1% PF 5 ML VIAL ONE (06:58)
[2025-06-28] MEDS ORDERED: CEFAZOLIN 2 GM VIAL ONE (07:10)
[2025-06-28] MEDS ORDERED: Heparin 30,000 units/30 ml VIAL ONE (08:14)
[2025-06-28] MEDS ORDERED: Thrombin 5000 UNITS/5 ML VIAL ONE (08:14)
[2025-06-28] MEDS ORDERED: Heparin 5,000 UNITS/ML VIAL ONE (08:14)
[2025-06-28] MEDS ORDERED: Cardioplegic Soln 1,000 ML BAG ONE (08:14)
[2025-06-28] MEDS ORDERED: Calcium Chloride 1 GM/10 ML Abboject SYRINGE ONE (08:14)
[2025-06-28] MEDS ORDERED: Rocuronium Bromide 10 MG/ML (10ML VIAL) ONE (13:06)
[2025-06-28] MEDS ORDERED: Guaifenesin DM 100-10/5 ML UDCUP PO PRN (13:14)
[2025-06-28] MEDS ORDERED: Bisacodyl 10 MG SUPP PR PRN (13:14)
[2025-06-28] MEDS ORDERED: Ondansetron PF 4 MG/2 ML Vial IVP PRN (13:14)
[2025-06-28] MEDS ORDERED: hydrALAZINE 20 MG/ML VIAL SLOW IVP PRN (13:14)
[2025-06-28] MEDS ORDERED: niCARdipine 25 MG in Sodium Chloride 0.9% 250 ML 250 ML IVPB PRN (13:14)
[2025-06-28] MEDS ORDERED: NOREPINEPHRINE 8 MG/250 ML-D5W 250 ML IVPB PRN (13:14)
[2025-06-28] MEDS ORDERED: Phenylephrine 40 MG/NS 250 ML 250 ML IVPB PRN (13:14)
[2025-06-28] MEDS ORDERED: Mag-Al 1200 mg/1200 mg/30 ML UDCUP PO PRN (13:14)
[2025-06-28] MEDS ORDERED: Dextrose 50% Abboject 50 ML SYRINGE SLOW IVP PRN (13:45)
[2025-06-28] MEDS ORDERED: Glucagon 1 MG/ML KIT SC PRN (13:45)
[2025-06-28 13:48] LABS: Actual Bicarbonate (HCO3a) 21.9 mEq/L (22-28); Base Excess (BEa) -3.1 mEq/L (-2.0 to +3.0); CO2 Tension 38.8 mmHg (35.0-45.0); Calcium, Ionized (arterial) 1.03 mmol/L (1.12-1.30); Hematocrit-ABG 30 % (42.0-52.0); Hemoglobin (Hb) 10.2 g/dL (14.0-18.0); O2 Tension (PaO2), arterial 82.3 mmHg (> 70.0); Potassium - ABG Lab 3.38 mmol/L (3.70-5.30); pH, Arterial 7.369 (7.35-7.45)
[2025-06-28 13:54] LABS: ALV-art Gradient 297.000 mmHg (0-20); Puncture Site Arterial Line
[2025-06-28] MEDS: Magnesium 2 GM/50 ML(in water) 2 GM in Premix 1 BAG IVPB SCH (14:04)
[2025-06-28] MEDS: NS 0.9% w/ 20 MEQ KCL 1,000 ML IV SCH (14:04)
[2025-06-28] MEDS: Post-Op Insulin Drip Protocol IVPB ONE (14:05)
[2025-06-28] MEDS: INSULIN REGULAR IN 0.9 % NACL 100 UNITS in Premix 1 BAG IVPB SCH (14:06)
[2025-06-28 14:34] LABS: #Basophils 0.04 10x3/uL (0.0-0.2); #Eosinophils 0.04 10x3/uL (0.0-0.7); #Monocytes 1.64 10x3/uL (0.11-0.59); #Neutrophils 18.51 10x3/uL (1.40-6.50); %Basophils 0.2 % (0.0-1.0); %Eosinophils 0.2 % (0.0-10.0); %Lymphocytes 7.4 % (21.0-51.0); %Monocytes 7.4 % (0.0-10.0); %Neutrophils 84.0 % (42.0-75.0); Hematocrit 31.0 % (42.0-52.0); Hemoglobin 9.6 g/dL (14.0-18.0); Mean Corpuscular Hemoglobin 21.0 pg (27.0-31.0); Mean Corpuscular Volume 67.8 fL (78.0-98.0); Platelet Count 165 10x3/uL (130-400); Red Blood Cell (RBC) Count 4.57 mill/uL (4.70-6.10); White Blood Cell (WBC) Count 22.04 10x3/uL (4.8-10.8)
[2025-06-28] MEDS: Albumin 5% 12.5 GM (250 mL) BOT IVPB PRN ×2 (14:50→21:48)
[2025-06-28 14:52] LABS: Anion Gap 10 mmol/L (10-20); BUN (Urea Nitrogen) 17 mg/dL (8.4-25.7); Calc. Creatinine Clearance 130 mL/min (70-130); Calcium 6.7 mg/dL (7.8-10.44); Carbon Dioxide 21 mmol/L (23-31); Chloride 116 mmol/L (98-107); Glucose 139 mg/dL (83-110); Potassium 3.6 mmol/L (3.5-5.1); Sodium 143 mmol/L (136-145)
[2025-06-28 14:57] LABS: INR-International Normal Ratio 1.5; PTT 32.1 sec (22.9-36.1); Prothrombin Time 18.4 sec (12.0-14.7)
[2025-06-28] MEDS: CALCIUM GLUC 1 GM/NS 50 ML 1 GM in Premix 1 BAG IVPB SCH (15:10)
[2025-06-28 16:05] LABS: Actual Bicarbonate (HCO3a) 19.3 mEq/L (22-28); Base Excess (BEa) -5.9 mEq/L (-2.0 to +3.0); CO2 Tension 36.7 mmHg (35.0-45.0); Calcium, Ionized (arterial) 1.12 mmol/L (1.12-1.30); Hematocrit-ABG 30 % (42.0-52.0); Hemoglobin (Hb) 10.1 g/dL (14.0-18.0); O2 Tension (PaO2), arterial 122.1 mmHg (> 70.0); Potassium - ABG Lab 3.41 mmol/L (3.70-5.30); pH, Arterial 7.338 (7.35-7.45)
[2025-06-28 16:08] LABS: ALV-art Gradient 117.225 mmHg (0-20); Puncture Site Arterial Line
[2025-06-28 17:07] LABS: Hematocrit 32.5 % (42.0-52.0); Hemoglobin 9.7 g/dL (14.0-18.0)
[2025-06-28 17:22] LABS: Magnesium 2.7 mg/dL (1.6-2.6)
[2025-06-28] MEDS: Famotidine/PF 20 mg/2ml Vial SLOW IVP SCH (20:31)
[2025-06-28] MEDS: Acetaminophen 325 MG TAB PO PRN (20:39)
[2025-06-28 21:42] LABS: Anion Gap 13 mmol/L (10-20); BUN (Urea Nitrogen) 19 mg/dL (8.4-25.7); Calc. Creatinine Clearance 113 mL/min (70-130); Calcium 7.5 mg/dL (7.8-10.44); Carbon Dioxide 21 mmol/L (23-31); Chloride 115 mmol/L (98-107); Glucose 121 mg/dL (83-110); Potassium 3.8 mmol/L (3.5-5.1); Sodium 145 mmol/L (136-145)
[2025-06-28] MEDS: Potassium Chloride 20 MEQ (100 mL) BAG IVPB PRN (21:55)
[2025-06-29] MEDS: Transdermal Patch Removal TOP SCH (04:45)
[2025-06-29 05:35] LABS: Anion Gap 11 mmol/L (10-20); BUN (Urea Nitrogen) 17 mg/dL (8.4-25.7); Calc. Creatinine Clearance 119 mL/min (70-130); Calcium 7.5 mg/dL (7.8-10.44); Carbon Dioxide 23 mmol/L (23-31); Chloride 115 mmol/L (98-107); Glucose 127 mg/dL (83-110); Magnesium 2.2 mg/dL (1.6-2.6); Potassium 4.2 mmol/L (3.5-5.1); Sodium 145 mmol/L (136-145)
[2025-06-29 05:45] LABS: Hematocrit 25.9 % (42.0-52.0); Hemoglobin 8.0 g/dL (14.0-18.0); Mean Corpuscular Hemoglobin 21.1 pg (27.0-31.0); Mean Corpuscular Volume 68.2 fL (78.0-98.0); Platelet Count 127 10x3/uL (130-400); Red Blood Cell (RBC) Count 3.80 mill/uL (4.70-6.10); White Blood Cell (WBC) Count 14.42 10x3/uL (4.8-10.8)
[2025-06-29 06:37] LABS: Anisocytosis MODERATE=16-30 cells HPF (0-5); Platelet Adequacy Comment Platelets Decreased; Poikilocytosis SLIGHT = 6-15 cells HPF (0-5); Polychromasia SLIGHT = 2-3 cells HPF (0-2); Smudge Cells 2.0 %
[2025-06-29] MEDS: Insulin Glargine 30 UNITS/0.3 ML VIAL SC SCH (07:55)
[2025-06-29] MEDS: Aspirin Chewable 81 MG TAB PO SCH (07:55)
[2025-06-29] MEDS: Heparin 5,000 UNITS/ML VIAL SC SCH (07:56)
[2025-06-29] MEDS: Gabapentin 300 MG CAP PO SCH (07:56)
[2025-06-29] MEDS: Magnesium 2 GM/50 ML(in water) 2 GM in Premix 1 BAG IVPB SCH (07:56)
[2025-06-29 10:29] LABS: Hematocrit 26.3 % (42.0-52.0); Hemoglobin 7.8 g/dL (14.0-18.0)
[2025-06-29] MEDS: Famotidine 20 MG TAB PO SCH (20:44)
[2025-06-29] MEDS: Sertraline 100 MG TAB PO SCH (20:46)
[2025-06-30 04:18] LABS: Anion Gap 9 mmol/L (10-20); BUN (Urea Nitrogen) 20 mg/dL (8.4-25.7); Calc. Creatinine Clearance 140 mL/min (70-130); Calcium 7.8 mg/dL (7.8-10.44); Carbon Dioxide 24 mmol/L (23-31); Chloride 110 mmol/L (98-107); Glucose 93 mg/dL (83-110); Magnesium 2.2 mg/dL (1.6-2.6); Potassium 3.3 mmol/L (3.5-5.1); Sodium 140 mmol/L (136-145)
[2025-06-30 04:20] LABS: Microcytosis SLIGHT = 6-15 cells HPF (0-5); Ovalocytes SLIGHT = 2-5 cells HPF (0-1); Platelet Adequacy Comment Significant Decrease; Poikilocytosis SLIGHT = 6-15 cells HPF (0-5); Polychromasia SLIGHT = 2-3 cells HPF (0-2)
[2025-06-30 04:36] LABS: #Basophils Less than 0.03 10x3/uL (0.0-0.2); #Eosinophils Less than 0.03 10x3/uL (0.0-0.7); #Monocytes 1.46 10x3/uL (0.11-0.59); #Neutrophils 9.07 10x3/uL (1.40-6.50); %Basophils 0.2 % (0.0-1.0); %Eosinophils 0.1 % (0.0-10.0); %Lymphocytes 10.2 % (21.0-51.0); %Monocytes 12.3 % (0.0-10.0); %Neutrophils 76.7 % (42.0-75.0); Hematocrit 23.8 % (42.0-52.0); Hemoglobin 7.4 g/dL (14.0-18.0); Mean Corpuscular Hemoglobin 22.0 pg (27.0-31.0); Mean Corpuscular Volume 70.6 fL (78.0-98.0); Platelet Count 86 10x3/uL (130-400); Red Blood Cell (RBC) Count 3.37 mill/uL (4.70-6.10); White Blood Cell (WBC) Count 11.83 10x3/uL (4.8-10.8)
[2025-06-30] MEDS: SODIUM CHLORIDE IVPB SCH (05:07)
[2025-06-30] MEDS: POTASSIUM PHOSPHATE IVPB SCH (05:07)
[2025-06-30] MEDS: Furosemide 40 MG (4 mL) VIAL SLOW IVP SCH ×2 (06:23→15:23)
[2025-06-30] MEDS: NS IVPB SCH (06:23)
[2025-06-30] MEDS: POTASSIUM PHOSPHATE 30 MMOL IVPB SCH (06:23)
[2025-06-30 12:32] LABS: Anion Gap 15 mmol/L (10-20); BUN (Urea Nitrogen) 19 mg/dL (8.4-25.7); Calc. Creatinine Clearance 106 mL/min (70-130); Calcium 7.9 mg/dL (7.8-10.44); Carbon Dioxide 20 mmol/L (23-31); Chloride 107 mmol/L (98-107); Glucose 245 mg/dL (83-110); Magnesium 2.0 mg/dL (1.6-2.6); Potassium 4.0 mmol/L (3.5-5.1); Sodium 138 mmol/L (136-145)
[2025-06-30] MEDS ORDERED: Mineral Oil ENEMA PR PRN (13:09)
[2025-06-30] MEDS ORDERED: Artificial Tear Ophth Sol 15 ML BOT EA EYE PRN (13:09)
[2025-06-30] MEDS ORDERED: Nitroglycerin 0.4 MG TAB (25 Tab Bottle) SL PRN (13:09)
[2025-06-30] MEDS ORDERED: diphenhydrAMINE 25 MG CAP PO PRN (13:09)
[2025-06-30] MEDS ORDERED: Communication Order-Pharmacy FS SCH (13:15)
[2025-06-30] MEDS ORDERED: INSULIN PUMP SC PRN (13:31)
[2025-06-30] MEDS: Magnesium 2 GM/50 ML(in water) 2 GM in Premix 1 BAG IVPB SCH (15:24)
[2025-07-01 04:38] LABS: #Basophils 0.03 10x3/uL (0.0-0.2); #Eosinophils 0.09 10x3/uL (0.0-0.7); #Monocytes 1.14 10x3/uL (0.11-0.59); #Neutrophils 6.95 10x3/uL (1.40-6.50); %Basophils 0.3 % (0.0-1.0); %Eosinophils 0.9 % (0.0-10.0); %Lymphocytes 14.5 % (21.0-51.0); %Monocytes 11.8 % (0.0-10.0); %Neutrophils 72.2 % (42.0-75.0); Hematocrit 22.3 % (42.0-52.0); Hemoglobin 6.8 g/dL (14.0-18.0); Mean Corpuscular Hemoglobin 21.3 pg (27.0-31.0); Mean Corpuscular Volume 69.9 fL (78.0-98.0); Platelet Count 121 10x3/uL (130-400); Red Blood Cell (RBC) Count 3.19 mill/uL (4.70-6.10); White Blood Cell (WBC) Count 9.64 10x3/uL (4.8-10.8)
[2025-07-01 04:50] LABS: Anion Gap 7 mmol/L (10-20); BUN (Urea Nitrogen) 18 mg/dL (8.4-25.7); Calc. Creatinine Clearance 119 mL/min (70-130); Calcium 7.6 mg/dL (7.8-10.44); Carbon Dioxide 26 mmol/L (23-31); Chloride 109 mmol/L (98-107); Glucose 107 mg/dL (83-110); Magnesium 2.4 mg/dL (1.6-2.6); Potassium 3.4 mmol/L (3.5-5.1); Sodium 139 mmol/L (136-145)
[2025-07-01] MEDS: Potassium Phosphate 30 MMOL in Sodium Chloride 0.9% 250 ML 250 ML IVPB SCH (08:15)
[2025-07-01] MEDS: Furosemide 40 MG (4 mL) VIAL SLOW IVP SCH (10:18)
[2025-07-01] MEDS: Mupirocin 1 GM TUBE TP SCH (21:51)
[2025-07-02 03:59] LABS: #Basophils 0.03 10x3/uL (0.0-0.2); #Eosinophils 0.30 10x3/uL (0.0-0.7); #Monocytes 1.00 10x3/uL (0.11-0.59); #Neutrophils 5.19 10x3/uL (1.40-6.50); %Basophils 0.4 % (0.0-1.0); %Eosinophils 3.9 % (0.0-10.0); %Lymphocytes 15.6 % (21.0-51.0); %Monocytes 12.9 % (0.0-10.0); %Neutrophils 66.6 % (42.0-75.0); Hematocrit 25.7 % (42.0-52.0); Hemoglobin 8.1 g/dL (14.0-18.0); Mean Corpuscular Hemoglobin 22.6 pg (27.0-31.0); Mean Corpuscular Volume 71.6 fL (78.0-98.0); Platelet Count 128 10x3/uL (130-400); Red Blood Cell (RBC) Count 3.59 mill/uL (4.70-6.10); White Blood Cell (WBC) Count 7.78 10x3/uL (4.8-10.8)
[2025-07-02 04:19] LABS: Anion Gap 8 mmol/L (10-20); BUN (Urea Nitrogen) 20 mg/dL (8.4-25.7); Calc. Creatinine Clearance 121 mL/min (70-130); Calcium 7.3 mg/dL (7.8-10.44); Carbon Dioxide 26 mmol/L (23-31); Glucose 200 mg/dL (83-110); Magnesium 2.0 mg/dL (1.6-2.6); Potassium 3.6 mmol/L (3.5-5.1); Sodium 137 mmol/L (136-145)
[2025-07-02 04:46] LABS: Chloride 103 mmol/L (98-107)
[2025-07-02 06:38] VITALS: BMI 30.5
[2025-07-02] MEDS: Furosemide 40 MG TAB PO SCH (10:02)
[2025-07-02] MEDS: metFORMIN 500 MG TAB PO SCH (10:02)
[2025-07-02] MEDS: Magnesium 2 GM/50 ML(in water) 2 GM in Premix 1 BAG IVPB SCH (10:50)
[2025-07-02 18:02] VITALS: BMI 30.5
[2025-07-03 04:36] LABS: #Basophils 0.05 10x3/uL (0.0-0.2); #Eosinophils 0.33 10x3/uL (0.0-0.7); #Monocytes 0.99 10x3/uL (0.11-0.59); #Neutrophils 5.50 10x3/uL (1.40-6.50); %Basophils 0.6 % (0.0-1.0); %Eosinophils 3.9 % (0.0-10.0); %Lymphocytes 18.0 % (21.0-51.0); %Monocytes 11.7 % (0.0-10.0); %Neutrophils 65.1 % (42.0-75.0); Hematocrit 27.4 % (42.0-52.0); Hemoglobin 8.5 g/dL (14.0-18.0); Mean Corpuscular Hemoglobin 22.3 pg (27.0-31.0); Mean Corpuscular Volume 71.7 fL (78.0-98.0); Platelet Count 188 10x3/uL (130-400); Red Blood Cell (RBC) Count 3.82 mill/uL (4.70-6.10); White Blood Cell (WBC) Count 8.45 10x3/uL (4.8-10.8)
[2025-07-03 04:42] LABS: Anion Gap 14 mmol/L (10-20); BUN (Urea Nitrogen) 17 mg/dL (8.4-25.7); Calc. Creatinine Clearance 132 mL/min (70-130); Calcium 8.2 mg/dL (7.8-10.44); Carbon Dioxide 23 mmol/L (23-31); Chloride 106 mmol/L (98-107); Glucose 111 mg/dL (83-110); Magnesium 2.0 mg/dL (1.6-2.6); Potassium 3.4 mmol/L (3.5-5.1); Sodium 140 mmol/L (136-145)
[2025-07-03 05:08] LABS: Microcytosis SLIGHT = 6-15 cells HPF (0-5); Platelet Adequacy Comment Platelets Normal; Poikilocytosis SLIGHT = 6-15 cells HPF (0-5); Polychromasia SLIGHT = 2-3 cells HPF (0-2)
[2025-07-03] MEDS: Magnesium 2 GM/50 ML(in water) 2 GM in Premix 1 BAG IVPB SCH (08:55)
[2025-07-03] MEDS: Furosemide 40 MG TAB PO SCH (08:56)
[2025-07-04 04:40] LABS: #Basophils 0.05 10x3/uL (0.0-0.2); #Eosinophils 0.36 10x3/uL (0.0-0.7); #Monocytes 1.19 10x3/uL (0.11-0.59); #Neutrophils 5.36 10x3/uL (1.40-6.50); %Basophils 0.6 % (0.0-1.0); %Eosinophils 4.1 % (0.0-10.0); %Lymphocytes 18.8 % (21.0-51.0); %Monocytes 13.6 % (0.0-10.0); %Neutrophils 61.1 % (42.0-75.0); Hematocrit 28.0 % (42.0-52.0); Hemoglobin 8.4 g/dL (14.0-18.0); Mean Corpuscular Hemoglobin 22.0 pg (27.0-31.0); Mean Corpuscular Volume 73.5 fL (78.0-98.0); Platelet Count 234 10x3/uL (130-400); Red Blood Cell (RBC) Count 3.81 mill/uL (4.70-6.10); White Blood Cell (WBC) Count 8.77 10x3/uL (4.8-10.8)
[2025-07-04 04:53] LABS: Anion Gap 13 mmol/L (10-20); BUN (Urea Nitrogen) 13 mg/dL (8.4-25.7); Calc. Creatinine Clearance 110 mL/min (70-130); Calcium 8.4 mg/dL (7.8-10.44); Carbon Dioxide 24 mmol/L (23-31); Chloride 102 mmol/L (98-107); Glucose 149 mg/dL (83-110); Potassium 3.6 mmol/L (3.5-5.1); Sodium 135 mmol/L (136-145)
[2025-07-05 05:17] LABS: #Basophils 0.04 10x3/uL (0.0-0.2); #Eosinophils 0.40 10x3/uL (0.0-0.7); #Monocytes 1.00 10x3/uL (0.11-0.59); #Neutrophils 6.52 10x3/uL (1.40-6.50); %Basophils 0.4 % (0.0-1.0); %Eosinophils 4.0 % (0.0-10.0); %Lymphocytes 18.6 % (21.0-51.0); %Monocytes 10.0 % (0.0-10.0); %Neutrophils 65.5 % (42.0-75.0); Hematocrit 28.1 % (42.0-52.0); Hemoglobin 8.9 g/dL (14.0-18.0); Mean Corpuscular Hemoglobin 22.8 pg (27.0-31.0); Mean Corpuscular Volume 71.9 fL (78.0-98.0); Platelet Count 277 10x3/uL (130-400); Red Blood Cell (RBC) Count 3.91 mill/uL (4.70-6.10); White Blood Cell (WBC) Count 9.96 10x3/uL (4.8-10.8)
[2025-07-05 05:31] LABS: Anion Gap 14 mmol/L (10-20); BUN (Urea Nitrogen) 13 mg/dL (8.4-25.7); Calc. Creatinine Clearance 87 mL/min (70-130); Calcium 8.4 mg/dL (7.8-10.44); Carbon Dioxide 25 mmol/L (23-31); Chloride 103 mmol/L (98-107); Glucose 123 mg/dL (83-110); Potassium 3.7 mmol/L (3.5-5.1); Sodium 138 mmol/L (136-145)
[2025-07-05 05:59] LABS: Macrocytosis SLIGHT = 6-15 cells HPF (0-5); Platelet Adequacy Comment Platelets Normal; Poikilocytosis SLIGHT = 6-15 cells HPF (0-5); Polychromasia SLIGHT = 2-3 cells HPF (0-2); Smudge Cells 7.9 %
[2025-07-05] MEDS: Sodium Ferric Gluconate 250 MG in Sodium Chloride 0.9% 250 ML 250 ML IVPB SCH (11:15)
[2025-07-06 04:19] LABS: #Basophils 0.06 10x3/uL (0.0-0.2); #Eosinophils 0.37 10x3/uL (0.0-0.7); #Monocytes 1.17 10x3/uL (0.11-0.59); #Neutrophils 8.08 10x3/uL (1.40-6.50); %Basophils 0.5 % (0.0-1.0); %Eosinophils 3.1 % (0.0-10.0); %Lymphocytes 16.6 % (21.0-51.0); %Monocytes 9.8 % (0.0-10.0); %Neutrophils 67.3 % (42.0-75.0); Hematocrit 29.3 % (42.0-52.0); Hemoglobin 8.9 g/dL (14.0-18.0); Mean Corpuscular Hemoglobin 22.2 pg (27.0-31.0); Mean Corpuscular Volume 73.1 fL (78.0-98.0); Platelet Count 347 10x3/uL (130-400); Red Blood Cell (RBC) Count 4.01 mill/uL (4.70-6.10); White Blood Cell (WBC) Count 11.99 10x3/uL (4.8-10.8)
[2025-07-06 04:38] LABS: Anion Gap 14 mmol/L (10-20); BUN (Urea Nitrogen) 11 mg/dL (8.4-25.7); Calc. Creatinine Clearance 82 mL/min (70-130); Calcium 8.7 mg/dL (7.8-10.44); Carbon Dioxide 27 mmol/L (23-31); Chloride 102 mmol/L (98-107); Glucose 134 mg/dL (83-110); Potassium 3.9 mmol/L (3.5-5.1); Sodium 139 mmol/L (136-145)
[2025-07-06] MEDS: Furosemide 20 MG TAB PO SCH (10:24)
[2025-07-06] MEDS: Amoxicillin/Potassium Clav 500 MG TAB PO SCH (10:24)
[2025-07-06 11:11] VITALS: TEMP 98.5
[2025-07-06 15:20] VITALS: BP 125/66
[2025-07-06 17:00] LABS: Bacteria/HPF None Seen HPF (None Seen); CAUTI Indications for Culture Fever or rigors; Glucose, Urine (Dipstick) Greater than 1000 mg/dL (Negative); Leukocyte Negative Leu/uL (Negative); Protein, Urine (Dipstick) Negative (Neg-Trace); RBC/HPF 0-3 HPF (0-3); Specific Gravity, Urine 1.022 (1.002-1.036); WBC/HPF 0-3 HPF (0-3)
[2025-07-06 17:03] LABS: Urine Culture Reflex No No
== END 2025-07-06 18:09 | disposition home or self-care (01) | DRG 234 ==
LOC: ERS 02:56 → 2NO 08:00 → OBSVTOIN 06-25 12:53 → 2NO 06-25 19:40 → CCU 06-28 12:11 → PCU 06-30 20:03
PROVIDERS: ADMIT Internal Medicine; ATTEND Hospitalist
DX: I25.118 Atherosclerotic heart disease of native coronary artery with other forms of angina pectoris (principal); D62 Acute posthemorrhagic anemia; F41.9 Anxiety disorder, unspecified; E87.6 Hypokalemia; E83.42 Hypomagnesemia; N40.0 Benign prostatic hyperplasia without lower urinary tract symptoms; K21.9 Gastro-esophageal reflux disease without esophagitis; R91.8 Other nonspecific abnormal finding of lung field; E66.9 Obesity, unspecified; I11.9 Hypertensive heart disease without heart failure; D64.9 Anemia, unspecified; E11.40 Type 2 diabetes mellitus with diabetic neuropathy, unspecified; E78.2 Mixed hyperlipidemia; R00.1 Bradycardia, unspecified; Z79.4 Long term (current) use of insulin; Z79.84 Long term (current) use of oral hypoglycemic drugs; Z79.899 Other long term (current) drug therapy; Z79.82 Long term (current) use of aspirin
CPT/HCPCS: 36415; 36416; 36430; 71045; 71046; 71275; 74174; 80048; 80053; 80061; 81001; 82805; 83036; 83735; 83880; 84100; 84484; 85025; 85610; 85730; 86850; 86900; 86901; 87040; 93005; 93010; 93306; 93458; 93798; 94002; 94640; 94760; 96374; 97139; A4311; A4648; C1751; C1769; C1889; C1894; G0378; J0153; J0169; J0613; J0665; J1308; J1642; J1644; J1815; J1940; J2250; J2270; J2440; J2704; J2916; J3010; J3373; J3475; J3480; J7050; J7620; P9016; P9045; Q9967; S0017

== ENCOUNTER 2025-08-06 09:30 | Outpatient (CLI) | payer OTHER | END 2025-08-06 09:31 | disposition home or self-care (01) | LOC: PET 09:30 | PROVIDERS: ATTEND Internal Medicine | DX: R91.1 Solitary pulmonary nodule (principal) | CPT/HCPCS: 78815; A9552 ==